=== PATIENT | female | born 1960 | race Two or more races ===

== ENCOUNTER 2016-09-10 07:35 | Day surgery (SDC) | payer BC ==
[2016-09-06 12:24] LABS: HEMATOCRIT 38.5 % (36.0-48.0)
[2016-09-06 13:18] LABS: A/G RATIO 1.3 (0.7-1.9); ALBUMIN 3.7 G/DL (3.5-5.0); ALKALINE PHOSPHATASE 66 U/L (45-117); BUN (BLOOD UREA NITROGEN) 16 MG/DL (6-23); CALCIUM, SERUM 8.7 MG/DL (8.5-10.4); CHLORIDE, SERUM 109 MMOL/L (96-112); CO2 (CARBON DIOXIDE) 25 MMOL/L (24-34); CREATININE 0.75 MG/DL (0.55-1.02); GFR AFRICAN AMERICAN 102 ML/MIN (>=60); GFR NON AFRICAN AMERICAN 88 ML/MIN (>=60); GLOBULIN 2.9 G/DL (2.5-4.1); GLUCOSE, SERUM 79 MG/DL (60-99); POTASSIUM, SERUM 4.2 MMOL/L (3.5-5.3); SGOT(AST) 12 U/L (5-40); SGPT(ALT) 19 U/L (5-65); SODIUM, SERUM 144 MMOL/L (135-148); TOTAL BILIRUBIN 0.3 MG/DL (0-1.2); TOTAL PROTEIN 6.6 G/DL (6.0-8.5)
--- NOTE | ~2016-09-10 | OP ---
Record Of Operation [facility] [address] [place]. [address] NAME: MARIA INES LEE : 56 STATUS : [facility]#: [id number] AGE: 56 ADM/REG DATE : 09/10/16 MR#: [id number] REPORT SERV DATE: 09/10/16 DICTATED BY: JTAIN ANDREA DATE: 09/10/16 REPORT STATUS : Draft TRANSCRIBED BY: MODL DATE: 09/10/16 DATE OF PROCEDURE: 09/10/2016 PREOPERATIVE DIAGNOSIS: Chronic cholecystitis with cholelithiasis. POSTOPERATIVE DIAGNOSIS: Chronic cholecystitis with cholelithiasis. PROCEDURE: Laparoscopic cholecystectomy (2-site). SURGEON: Jatin Anrdea M.D. DESCRIPTION OF OPERATIVE PROCEDURE: The patient was brought to the operating suite, placed in supine position, underwent satisfactory general endotracheal anesthesia without incident. The skin of the abdomen was scrubbed, prepped, and draped in the usual sterile fashion. 0.5% Marcaine with epinephrine was utilized as supplemental local anesthesia at all intended trocar sites. Initially, an infraumbilical incision was performed dissecting through the skin and subcutaneous tissue to the umbilical fascia. This was grasped with a Bari clamp and elevated and a disposable Veress insufflation needle was inserted through the umbilical fascia into the peritoneal cavity. Intraperitoneal tip location was ascertained using the saline hanging drop method following which CO2 was insufflated for pressures of 15 mmHg throughout the case. After adequate insufflation pressure achieved, the Veress needle was removed, disposable bladed shielded 11 mm trocar was inserted through the umbilical fascia into the peritoneal cavity following which a rigid forward-viewing 10 mm laparoscope was inserted. Visualization of the intraabdominal parietes revealed no evidence of injury from initial insufflation or puncture. Cursory examination of the pelvis was normal. Attention was then turned to the upper abdomen where an additional 5 mm trocar was placed to the right of falciform ligament. Then, an additional 5 mm trocar inserted through the umbilical fascia next to the umbilical trocar. The fundus and body of the gallbladder grasped and elevated, fibrofatty adhesions were taken down from the infundibular portion of the gallbladder and dissection of triangle of Calot was successful in identifying and skeletonizing the cystic duct and cystic duct common duct junction. These 2 structures were isolated, skeletonized, and controlled with multiple applications of the Weck 5 mm polymer clip system and divided. Then, using spatula cautery dissection, the peritoneal attachments to the gallbladder liver were divided. The gallbladder was removed from the subhepatic space. Next, the camera switched to the 5 mm epigastric port. The gallbladder was placed inside an Endo retrieval pouch placed through the umbilical port for removal. Trocars were removed. Record Of Operation [address] [place]. [address] NAME: MARIA INES LEE : 56 STATUS : [facility] PAT#: [id number] AGE: 56 ADM/REG DATE : 09/10/16 MR#: [id number] REPORT SERV DATE: 09/10/16 DICTATED BY: JATIN ANDREA DATE: 09/10/16 REPORT STATUS : Draft TRANSCRIBED BY: NEGRITO DATE: 09/10/16 No muscular bleeding was noted. The endo retrieval pouch was opened and the gallbladder was morcellated and the very large stone was fractured and removed intact. CO2 was allowed to egress from the peritoneal cavity. The umbilicus was closed with [id number] suture of 0 Vicryl, subcutaneous tissue closed at all sites with interrupted 4-0 Vicryl, running subcuticular stitch of 4-0 Vicryl for the skin. Dermabond skin adhesive placed. The patient tolerated the procedure well and was returned to PACU in stable condition. At termination of procedure, sponge, needle, lap, instrument counts were correct x3. ESTIMATED BLOOD LOSS: 5-10 mL. WR/MODL Jatin Andrea M.D. / [id number] CC: Wilman Arauz M.D.
[~2016-09-10 07:35] MED LIST: ADOXA100 MG PO; ADVAIR250; ADVAIR250 INH; ALBUTEROL5 INH; ASAB PO; CLARIT10 PO; COR20 PO; COREG12 PO; DIOVAN HC1 PO; FERROUS SULF325 M1 PO; HALF81 PO; IBU800 PO; KLOR-CON 1010 MEQ PO; L20 PO; LEVAQUIN750 MG PO; LIPITOR40 PO; LIPITOR80 MG PO; LOP25 PO; MELATONIN5 M1 PO; NICODERM C14 MG/24 H TOP; NITROSTAT0.4 MG SL; NORCO1 TA1 PO; NORV5 PO; P10 PO; P20; P20 PO; POTASSIUM RX PO; PRILOSEC40 MG PO; PROAIR HFA; PROAIR HFA INH; STERAPDS12; TESSALON200 MG PO; Z-PAK PO
[2017-03-25] MEDS ORDERED: PRILOSEC40 MG PO (17:28)
[2017-03-25] MEDS ORDERED: COREG12 PO (17:28)
[2017-03-25] MEDS ORDERED: IBU800 PO (17:29)
[2017-03-25] MEDS ORDERED: SINGULAIR1 PO (17:29)
[2017-03-25] MEDS ORDERED: ADVAIR250 INH (17:30)
[2017-03-25] MEDS ORDERED: ASAB PO (17:30)
[2017-03-25] MEDS ORDERED: PROAIR HFA INH (17:30)
[2017-03-25] MEDS ORDERED: FERROUS SULF325 M1 PO (17:31)
[2017-03-25] MEDS ORDERED: NITROSTAT0.4 MG SL (17:31)
[2017-03-25] MEDS ORDERED: CLARIT10 PO (17:31)
[2017-03-25] MEDS ORDERED: LIPITOR80 MG PO (17:32)
[2017-03-25] MEDS ORDERED: L40 PO (17:32)
[2017-03-25] MEDS ORDERED: MELATONIN5 M1 PO (17:33)
[2017-03-25] MEDS ORDERED: FLONASE NAS (17:34)
[2017-03-25] MEDS ORDERED: AFRIN15 NAS (17:34)
[2017-03-25] MEDS ORDERED: ICY HOT OINTMENT TOP (17:36)
[2017-03-25] MEDS ORDERED: GLUCPH PO (18:10)
== END 2016-09-10 17:14 | disposition home or self-care (01) ==
LOC: SDC 07:35
PROVIDERS: Specialist
PROC: 0FT44ZZ Resection of Gallbladder, Percutaneous Endoscopic Approach (ICD-10-PCS; principal; 2016-09-10 09:00)
DX: K80.10 Calculus of gallbladder with chronic cholecystitis without obstruction (principal); J45.909 Unspecified asthma, uncomplicated; K21.9 Gastro-esophageal reflux disease without esophagitis; I10 Essential (primary) hypertension; G47.33 Obstructive sleep apnea (adult) (pediatric); H91.90 Unspecified hearing loss, unspecified ear; F41.9 Anxiety disorder, unspecified; J44.9 Chronic obstructive pulmonary disease, unspecified; E78.5 Hyperlipidemia, unspecified; Z88.1 Allergy status to other antibiotic agents; Z90.89 Acquired absence of other organs; Z98.890 Other specified postprocedural states; Z87.01 Personal history of pneumonia (recurrent); Z88.0 Allergy status to penicillin; Z79.899 Other long term (current) drug therapy
CPT/HCPCS: 80053; 85014; 85018; 88304; 93005; A9270-GY; J0360; J0690; J1170; J2250; J2405; J2710; J3010